=== PATIENT | female | born 1980 | race Asian ===

== ENCOUNTER 2017-01-19 19:10 | Emergency (ER) | payer OTHER ==
[~2017-01-19] VITALS: Ht 157.5 cm; Wt 59.1 kg
[2017-01-19 19:46] VITALS: BP 128/85
[2017-01-19] MEDS ORDERED: DEXAMETHASONE SOD PHOS 4 MG/ML VIAL IM ONE (20:00)
[2017-01-19] MEDS ORDERED: LIDOCAINE HCL/PF 1% 2 ML VIAL IM ONE (20:00)
[2017-01-19] MEDS ORDERED: CefTRIAXone SODIUM 1 GM/VIAL IM ONE (20:00)
== END 2017-01-19 20:35 | disposition home or self-care (01) ==
LOC: EMS 19:14
DX: S40.861A Insect bite (nonvenomous) of right upper arm, initial encounter (principal); L03.113 Cellulitis of right upper limb; T78.40XA Allergy, unspecified, initial encounter; W57.XXXA Bitten or stung by nonvenomous insect and other nonvenomous arthropods, initial encounter; Y93.89 Activity, other specified; Y92.89 Other specified places as the place of occurrence of the external cause; Y99.8 Other external cause status
CPT/HCPCS: 96372; 99284; J0696; J1100; J3490